=== PATIENT | male | born 1980 | race Caucasian/White ===

== ENCOUNTER → 2021-10-26 17:36 | Outpatient (BNVA) | payer BC, SELFPAY | PROVIDERS: Visit Provider Nurse Practitioner Family | DX: F41.9 Anxiety disorder, unspecified (principal); F32.A Depression, unspecified; Z13.6 Encounter for screening for cardiovascular disorders; G40.409 Other generalized epilepsy and epileptic syndromes, not intractable, without status epilepticus | CPT/HCPCS: 80053; 80061; 84439; 84443; 85025 ==